=== PATIENT | male | born 1955 ===

== ENCOUNTER → 2020-02-01 | Outpatient (CLI) | payer SELFPAY ==
[2020-02-04 10:09] LABS: CHLAMYDIA TRACHOMATIS, NAA Negative (Negative); NEISSERIA GONORRHOEAE, NAA Positive (Negative)
== END | disposition home or self-care (01) ==
LOC: LAB EV 12:56 → LAB SHORT 12:56
PROVIDERS: Family Medicine
DX: N34.2 Other urethritis (principal)
CPT/HCPCS: 87077; 87086; 87185; 87491; 87591